=== PATIENT | male | born 1990 | race Caucasian/White ===

== ENCOUNTER 2019-04-28 19:39 | Emergency (ER) | payer SELFPAY ==
[~2019-04-28 19:39] MED LIST: FAMO-63 PO; NAPR-514 PO; PRED1TAB PO; TRAM50TA PO
[2019-04-28 19:40] VITALS: BP 102/73
--- NOTE | 2019-04-28 20:13 | PHYS DOC ---
Past History Past Medical History: No Pertinent History Past Surgical History: No Surgical History Alcohol Use: Occasionally Drug Use: None Adult General Chief Complaint Chief Complaint: SORE THROAT HPI HPI Patient is a 28-year-old male who presents to the emergency department for evaluation of weeks worth of a sore throat, and nasal congestion. He has not had any headache, otalgia, nausea, vomiting, or diarrhea. He had a fever 2 days ago but not today. He has not had any lethargy. He is admitted to without any difficulty or pain. There are no alleviating or exacerbating factors to his symptoms, except that swallowing seems to worsen his pain. He has not had any voice changes. Review of Systems Review of Systems Constitutional: Denies lethargy or chills [] Eyes: Denies change in visual acuity, redness, or eye pain [] HENT: ( nasal congestion & sore throat [] Respiratory: Denies cough or shortness of breath [] GI: Denies nausea, vomiting, bloody stools or diarrhea. Had some epigastric discomfort this morning, gone now. [] : Denies dysuria or hematuria [] Musculoskeletal: Denies back pain or joint pain [] Integument: Denies rash or skin lesions [] Neurologic: Denies headache, focal weakness or sensory changes [] Allergies Allergies Allergies Uncoded Allergies Type Severity Reaction Last Updated Verified narcotics Allergy Unknown 03/14/16 Physical Exam Physical Exam PHYSICAL EXAM: CONSTITUTIONAL: Well developed, well nourished HEAD: normocephalic, atraumatic EENT: PERRL, EOMI. Conjunctivae normal color, sclerae non-icteric; moist mucous membranes. The oropharynx is mildly erythematous. There is no exudate, peritonsillar edema, or uvular deviation. There is mildly tender submandibular lymphadenopathy. NECK: Supple, non-tender; no meningismus. LUNGS: Lungs CTA, breathing even and unlabored. Normal air movement. HEART: Regular rate and rhythm, no murmur CHEST: No deformity; non-tender ABDOMEN: The abdomen is soft, and non-tender, no masses or bruits. EXTREM: Normal ROM; no deformity, no calf tenderness. Normal pulses palpable in all extremities. There is no pedal edema. SKIN: No rash; no diaphoresis NEURO: Alert; normal speech and cognition; CN's grossly intact; strength grossly intact without focal deficit. BACK: No CVA TTP. EKG EKG [] Radiology/Procedures Radiology/Procedures [] Course & Med Decision Making Course & Med Decision Making Rapid strep negative Patient remains stable. I discussed test results, the need for close follow-up, and return precautions. Dragon Disclaimer Dragon Disclaimer This electronic medical record was generated, in whole or in part, using a voice recognition dictation system. Departure Departure: Impression: Primary Impression: Viral pharyngitis Additional Impression: Viral syndrome Disposition: 01 HOME, SELF-CARE Condition: STABLE Patient Instructions: Viral Pharyngitis, Viral Syndrome Problem Qualifiers ELISA BUSH MD Apr 28, 2019 20:13
== END 2019-04-28 20:32 | disposition home or self-care (01) ==
LOC: ER 19:39
DX: B34.9 Viral infection, unspecified (principal); J02.8 Acute pharyngitis due to other specified organisms; Z88.5 Allergy status to narcotic agent
CPT/HCPCS: 87070; 87880; 99283; 99284

== ENCOUNTER 2020-12-07 12:57 | Emergency (ER) | payer SELFPAY ==
[~2020-12-07] VITALS: Ht 182.9 cm; Wt 59.4 kg
--- NOTE | 2020-12-07 13:18 | PHYS DOC ---
Past History Past Medical History: No Pertinent History Past Surgical History: No Surgical History Alcohol Use: Occasionally Drug Use: None General Adult EDM: Chief Complaint: SHORTNESS OF BREATH HPI: HPI: Patient is a 30-year-old male being seen in the ER today for shortness of breath with fever, brown productive cough, diarrhea since Friday. Patient denies any nausea, vomiting, abdominal pain, chest pain. He reports that he has a history of asthma as a child and anxiety. Patient denies any sick exposures. Review of Systems: Review of Systems: 14 body systems of the review of systems have been reviewed. See HPI for pertinent positive and negative responses, otherwise all other systems are negative, nonpertinent or noncontributory Current Medications: Current Meds: Current Medications Medications (Trade) Dose Ordered Sig/Shalonda Start Time Stop Time Status Last Admin Dose Admin Lorazepam (Ativan Inj) 0.5 mg 1X ONCE 12/07/20 13:00 12/07/20 13:08 DC 12/07/20 13:08 0.5 MG Allergies: Allergies: Allergies Uncoded Allergies Type Severity Reaction Last Updated Verified narcotics Allergy Unknown 03/14/16 Physical Exam: PE: Constitutional: Well developed, well nourished, no acute distress, non-toxic appearance. [] HENT: Normocephalic, atraumatic, bilateral external ears normal, oropharynx moist, no oral exudates, nose normal, no oropharyngeal swelling. [] Eyes: PERRL, conjunctiva normal, no discharge. [] Neck: Normal range of motion, no stridor. [] Cardiovascular:Heart rate tachycardic rhythm, no murmur [] Lungs & Thorax: Bilateral breath sounds coarse to auscultation, tachypnea, patient requiring nonrebreather due to hyperventilation and refusal to wear facemask [] Abdomen: Bowel sounds normal, soft, no tenderness, no masses, no pulsatile syed s. [] Skin: Warm, dry, no erythema, no rash. [] Back: No tenderness, normal range of motion Extremities: No tenderness, no cyanosis, no clubbing, ROM intact, no edema. [] Neurologic: Alert and oriented X 3, normal motor function, normal sensory function, no focal deficits noted. [] Psychologic: Patient appears very anxious and is hyperventilating [] Current Patient Data: Labs: Laboratory Tests Test 12/07/20 13:01 White Blood Count 8.0 x10^3/uL Red Blood Count 5.10 x10^6/uL Hemoglobin 16.3 g/dL Bedside Hemoglobin gm/dL Hematocrit 48.2 % Bedside Hematocrit % Mean Corpuscular Volume 94 fL Mean Corpuscular Hemoglobin 32 pg Mean Corpuscular Hemoglobin Concent 34 g/dL Red Cell Distribution Width 12.7 % Platelet Count 300 x10^3/uL Neutrophils (%) (Auto) 52 % Lymphocytes (%) (Auto) 26 % Monocytes (%) (Auto) 11 % Eosinophils (%) (Auto) 10 % Basophils (%) (Auto) 1 % Neutrophils # (Auto) 4.2 x10^3uL Lymphocytes # (Auto) 2.1 x10^3/uL Monocytes # (Auto) 0.9 x10^3/uL Eosinophils # (Auto) 0.8 x10^3/uL Basophils # (Auto) 0.1 x10^3/uL Bedside Sodium 144 mmol/L Sodium Level mmol/L Bedside Potassium 3.9 mmol/L Potassium Level mmol/L Bedside Chloride 105 mmol/L Chloride Level mmol/L Carbon Dioxide Level 24 mmol/L Bedside Total CO2 mmol/L Anion Gap mmol/L Bedside Blood Urea Nitrogen mg/dL Blood Urea Nitrogen 23 mg/dL Creatinine 0.9 mg/dL Bedside Creatinine mg/dL Estimated GFR (Cockcroft-Gault) 100.5 BUN/Creatinine Ratio 26 Glucose Level mg/dL Calcium Level 10.0 mg/dL Bedside Ionized Calcium (Kaveh) mmol/L Total Bilirubin 1.3 mg/dL Aspartate Amino Transf (AST/SGOT) 22 U/L Alanine Aminotransferase (ALT/SGPT) 17 U/L Alkaline Phosphatase 59 U/L Troponin I Quantitative < 0.017 ng/mL Total Protein 8.3 g/dL Albumin 4.9 g/dL Albumin/Globulin Ratio 1.4 Current Medications Medications (Trade) Dose Ordered Sig/Shalonda Route PRN Reason Start Time Stop Time Status Last Admin Dose Admin Lorazepam (Ativan Inj) 0.5 mg 1X ONCE IVP 12/07/20 13:00 12/07/20 13:08 DC 12/07/20 13:08 EKG: EKG: EKG performed at 1350 by ER staff shows sinus tachycardia at a rate of 107 with no STEMI as read by Dr. Fulton. Radiology/Procedures: Radiology/Procedures: []PROCEDURE: PORTABLE CHEST 1V XR CHEST 1V History: Short of air Comparison: None. Technique: AP radiograph of the chest. Findings: The lungs are adequately and symmetrically inflated. There is suggestion of subtle bilateral airspace opacities. No pleural effusion or pneumothorax. Osseous structures and soft tissues are unremarkable. Normal heart size and pulmonary vasculature. Impression: 1. Subtle bilateral airspace opacities may represent diffuse infectious process. Electronically signed by: Deon Vernon MD (12/07/2020 2:22 PM) [facility] DICTATED AND SIGNED BY: DEON VERNON MD DATE: 12/07/201420 CC: OPAL AMAYA APRN; PCP,NO ~MTH0 0 Heart Score: C/O Chest Pain: No Risk Factors: Risk Factors: DM, Current or recent (<one month) smoker, HTN, HLP, family history of CAD, obesity. Risk Scores: Score 0 - 3: 2.5% MACE over next 6 weeks - Discharge Home Score 4 - 6: 20.3% MACE over next 6 weeks - Admit for Clinical Observation Score 7 - 10: 72.7% MACE over next 6 weeks - Early Invasive Strategies Course & Med Decision Making: Course & Med Decision Making Pertinent Labs and Imaging studies reviewed. (See chart for details) Patient is a 30-year-old male being seen in the ER today for shortness of breath, fever, cough, diarrhea. Work-up included work, EKG chest x-ray, Covid testing. Patient was very anxious was given Ativan. Following the administration of Ativan patient's heart rate decreased in setting of his respirations. Vital signs stable patient reports that he still feels like he cannot breathe although he is oxygenating normally. Patient given a DuoNeb tr eatment. Patient lab work was unremarkable, EKG showed sinus tach, Covid test pending, chest x-ray shows pneumonia. Patient given first dose of antibiotic in the ER today. Patient sent home with antibiotic and albuterol inhaler. I discussed with patient all findings and diagnostic testing as well as the need to follow-up with PCP for further evaluation and treatment or return to the ER if any new or worsening symptoms. Strict return precautions were also discussed at length. Patient voiced understanding and agreement with the plan. Patient is hemodynamically stable at the time of disposition. Dragon Disclaimer: Shanelle Disclaimer: This electronic medical record was generated, in whole or in part, using a voice recognition dictation system. Departure Departure: Impression: Primary Impression: Pneumonia Qualified Codes: J18.9 - Pneumonia, unspecified organism Disposition: HOME / SELF CARE / HOMELESS Condition: STABLE Referrals: PCP,NO (PCP) Patient Instructions: Pneumonia, Adult Additional Instructions: You were seen for shortness of breath, fever, cough. Your physical exam was reassuring. Your lab work was unremarkable. Your chest x-ray showed a mild pneumonia. This is treated with an antibiotic. You were given the first dose in the ER today. Please start and finish antibiotic completely. We tested you for COVID-19 but this test does not come back for 1 to 2 days. In the meantime you will need to quarantine yourself at home away from all other individuals, especially those who are elderly or have any other chronic health issues or any one with immunocompromise status. You should return to the ER if you develop worsening cough, shortness of breath, chest pain, or any other new or concerning symptoms. Alternate Tylenol and ibuprofen as needed for your body aches and pain. If your test does come back positive we will need to quarantine yourself for 10 days until symptom free. You should make sure to drink plenty of fluids and get plenty of rest. EMERGENCY DEPARTMENT GENERAL DISCHARGE INSTRUCTIONS Thank you for coming to [facility] (ED) today and trusting us with you care. We trust that you had a positivie experience in our Emergency Department. If you wish to speak to the department management, you may call the director at [phone]. YOUR FOLLOW UP INSTRUCTIONS ARE FOLLOWS: 1. Do you have a private Doctor? If you do not have a private doctor, please a sk for a resource list of physicians or clinics that may be able to assist you with follow up care. 2. The Emergency Physician has interpreted your x-rays. The X-Ray specialist will also review them. If there is a change in the findings, you will be notified in 48 hours when at all possible. 3. A lab test or culture has been done, your results will be reviewed and you will be notified if you need a change in treatment. ADDITIONAL INSTRUCTIONS AND INFORMATION: 1. Your care today has been supervised by a physician who is specially trained in emergency care. Many problems require more than one evaluation for a complete diagnosis and treatment. We recommend that you schedule your follow up appointment as recommended to ensure complete treatment of you illness or injury. If you are unable to obtain follow up care and continue to have a problem, or if your condition worsens, we recommend that you return to the ED. 2. We are not able to safely determine your condition over the phone nor are we able to give sound medical advice over the phone. For these safety reasons, if you call for medical advice we will ask you to come to the ED for further evaluation. 3. If you have any questions regarding these discharge instructions please call the ED at [phone]. SAFETY INFORMATION: In the interest of safety, wellness, and injury prevention; we encourage you to wear your sealbelt, if you smoke; quite smoking, and we encourage family to use a protective helmet for bicycling and other sporting events that present an increased risk for head injury. IF YOUR SYMPTOMS WORSEN OR NEW SYMPTOMS DEVELOP, OR YOU HAVE CONCERNS ABOUT YOUR CONDITION; OR IF YOUR CONDITION WORSENS WHILE YOU ARE WAITING FOR YOUR FOLLOW UP APPOINTMENT; EITHER CONTACT YOUR PRIMARY CARE DOCTOR, THE PHYSICIAN WHOSE NAME AND NUMBER YOU WERE GIVEN, OR RETURN TO THE ED IMMEDIATELY. Scripts Azithromycin (AZITHROMYCIN TABLET) 250 Mg Tablet 1 PKG PO UD for pneumonia for 4 Days, #6 TAB 0 Refills 1 for days 2-5 Prov: OPAL AMAYA APRN 12/07/20 OPAL AMAYA APRN Dec 07, 2020 13:18
[2020-12-07 13:20] LABS: BASO # 0.1 x10^3/uL (0.0-0.2); BASO % 1 % (0-3); EOS # 0.8 x10^3/uL (0.0-0.7); EOS % 10 % (0-3); HEMATOCRIT 48.2 % (39.0-53.0); HEMOGLOBIN 16.3 g/dL (13.0-17.5); LYMPH # 2.1 x10^3/uL (1.0-4.8); LYMPH % 26 % (24-48); MEAN CORPUSCULAR HEMOGLOBIN 32 pg (25-35); MEAN CORPUSCULAR HGB CONC 34 g/dL (31-37); MEAN CORPUSCULAR VOLUME 94 fL (79-100); MONO # 0.9 x10^3/uL (0.0-1.1); MONO % 11 % (0-9); NEUT # 4.2 x10^3uL (1.8-7.7); NEUT % 52 % (31-73); PLATELET COUNT 300 x10^3/uL (140-400); RED CELL DISTRIBUTION WIDTH 12.7 % (11.5-14.5)
[2020-12-07 13:33] LABS: ALBUMIN 4.9 g/dL (3.4-5.0); ALBUMIN/GLOBULIN RATIO 1.4 (1.0-1.7); ALK PHOS 59 U/L (46-116); ALT (SGPT) 17 U/L (16-63); AST (SGOT) 22 U/L (15-37); BLOOD UREA NITROGEN 23 mg/dL (8-26); BUN/CREATININE RATIO 26 (6-20); CARBON DIOXIDE 24 mmol/L (21-32); CREATININE 0.9 mg/dL (0.7-1.3); GFR 100.5; GLUCOSE 90 mg/dL (70-99); POTASSIUM ISTAT 3.9 mmol/L (3.5-5.0); SODIUM ISTAT 144 mmol/L (135-145); TOTAL BILIRUBIN 1.3 mg/dL (0.2-1.0); TOTAL PROTEIN 8.3 g/dL (6.4-8.2)
[2020-12-07] MEDS ORDERED: IPRATRPIUM/ALBUTEROL 0.5/2.5MG 3 ML NEBU. NEB ONE (14:15)
--- NOTE | 2020-12-07 14:24 | RAD ---
XR CHEST 1V History: Short of air Comparison: None. Technique: AP radiograph of the chest. Findings: The lungs are adequately and symmetrically inflated. There is suggestion of subtle bilateral airspace opacities. No pleural effusion or pneumothorax. Osseous structures and soft tissues are unremarkable . Normal heart size and pulmonary vasculature. Impression: 1. Subtle bilateral airspace opacities may represent diffuse infectious process. Electronically signed by: Deon Vernon MD (12/07/2020 2:22 PM) [facility]
--- NOTE | 2020-12-07 14:57 | EKG ---
[address] [address] Test Date: 2020-12-07 Test Time: 13:15:31 Pat Name: EBER GAITAN Department: Room: Gender: M Ditch Rider: NICK : 1990 Requested By: OPAL AMAYA Order Number: [id number] Reading MD: Measurements Intervals [place] Rate: 107 P: 90 LA: 138 QRS: 89 QRSD: 104 T: -26 QT: 342 QTc: 462 Interpretive Statements SINUS TACHYCARDIA R-S TRANSITION ZONE IN V LEADS DISPLACED TO THE LEFT T ABNORMALITY IN ANTERIOR LEADS INFERIOR LEADS ABNORMAL ECG RI6.02 No previous ECG available for comparison
[2020-12-07] MEDS ORDERED: AZITHROMYCIN 250 MG TABLET. PO ONE (15:00)
[2020-12-07] MEDS ORDERED: AZIT250T6 PO (15:41)
[2020-12-07 15:45] VITALS: BP 130/62
== END 2020-12-07 16:04 | disposition home or self-care (01) ==
LOC: ER 12:57
DX: J18.9 Pneumonia, unspecified organism (principal); Z20.822 Contact with and (suspected) exposure to COVID-19; Z88.5 Allergy status to narcotic agent
CPT/HCPCS: 36415; 71045; 80047; 80053; 84484; 85025; 93005; 94640; 96374; 99285; C9803; J2060; U0003

== ENCOUNTER 2021-04-15 12:51 | Emergency (ER) | payer SELFPAY ==
[~2021-04-15] VITALS: Ht 182.9 cm; Wt 59.9 kg
[~2021-04-15 12:51] MED LIST changes: +AZIT250T6 PO
--- NOTE | 2021-04-15 13:23 | PHYS DOC ---
Past History Past Medical History: No Pertinent History Past Surgical History: No Surgical History Alcohol Use: None Drug Use: None General Adult EDM: Chief Complaint: COUGH HPI: HPI: Patient is a 22-year-old male coming in for cough, chest tightness, intermittent fevers for the past 7 days. Patient states he had been doing some lawn work and has a history of allergies and he also states that he was recently visited by family who had similar cold symptoms. Patient has a history of asthma, tobacco use, COVID-19 1 month ago, pneumonia 4 months ago. Patient states that since he had Covid he had completely Review of Systems: Review of Systems: All other systems within normal limits except for as noted in the HPI Allergies: Allergies: Allergies Coded Allergies Type Severity Reaction Last Updated Verified Opioids - Morphine Analogues Adverse Reaction Unknown 04/15/21 Yes Physical Exam: PE: Constitutional: Well developed, well nourished, no acute distress, non-toxic appearance. [] HENT: Normocephalic, atraumatic, bilateral external ears normal, nose normal. [] Eyes: PERRLA, conjunctiva normal, no discharge. [] Neck: No rigidity, supple, no stridor. [] Cardiovascular: Regular rate and rhythm, brisk cap refill [] Lungs & Thorax: Non labored symmetric respirations, no tachypnea or respiratory distress. Expiratory wheezes worse on left [] Abdomen: Soft, nondistended. Skin: Warm, dry, no erythema, no rash. [] Back: Unremarkable Extremities: No deformities, range of motion grossly intact, no lower extremity edema [] Neurologic: Alert and oriented X 3, no focal deficits noted. [] Psychologic: Affect normal, judgement normal, mood normal. [] Current Patient Data: Vital Signs: Vital Signs Date Time Temp Pulse Resp B/P (MAP) Pulse Ox O2 Delivery O2 Flow Rate FiO2 04/15/21 13:00 98.0 65 18 120/81 (94) Room Air EKG: EKG: [] Radiology/Procedures: Radiology/Procedures: [address] [address] IMAGING REPORT Signed PATIENT: EBER GAITAN ACCOUNT: [id number] : 1990 LOCATION: ER AGE: 30 SEX: M EXAM STATUS: REG ER ORD. PHYSICIAN: NEELAM HAMEED MD REASON: pna PROCEDURE: CHEST PA & LATERAL EXAMINATION: Chest radiograph. VIEWS: Frontal and lateral views of the chest COMPARISON: 12/07/2020 INDICATION:30 years, Male, pneumonia. FINDINGS: Normal cardiomediastinal silhouette. No focal consolidation. No pleural effusion or pneumothorax. No acute osseous process. IMPRESSION: No acute cardiopulmonary process. Electronically signed by: Shira Wallace DO (04/15/2021 1:42 PM) [facility] DICTATED AND SIGNED BY: SHIRA WALLACE DO DATE: 04/15/21 1331 CC: NEELAM HAMEED MD; PCP,ROC ~MTH0 0 [] Heart Score: C/O Chest Pain: No Risk Factors: Risk Factors: DM, Current or recent (<one month) smoker, HTN, HLP, family history of CAD, obesity. Risk Scores: Score 0 - 3: 2.5% MACE over next 6 weeks - Discharge Home Score 4 - 6: 20.3% MACE over next 6 weeks - Admit for Clinical Observation Score 7 - 10: 72.7% MACE over next 6 weeks - Early Invasive Strategies Course & Med Decision Making: Course & Med Decision Making Pertinent Labs and Imaging studies reviewed. (See chart for details) [] Dragon Disclaimer: Dragon Disclaimer: This electronic medical record was generated, in whole or in part, using a voice recognition dictation system. Departure Departure: Impression: Primary Impression: Asthma exacerbation Disposition: HOME / SELF CARE / HOMELESS Condition: IMPROVED Referrals: PCP,ROC (PCP) Patient Instructions: Asthma Attacks, Prevention Scripts Prednisone (PREDNISONE) 50 Mg Tablet 1 TAB PO DAILY for steroid for 4 Days, #4 TAB You received this medication in the emergency room today. You will starting your next dose tomorrow. Prov: NEELAM HAMEED MD 04/15/21 Ipratropium/Albuterol Sulfate (DUONEB 0.5-3(2.5) MG/3 ML) 3 Ml Ampul.neb 3 ML NEB QID PRN for WHEEZING for 10 Days, #40 EACH Prov: NEELAM HAMEED MD 04/15/21 NEELAM HAMEED MD Apr 15, 2021 13:23
[2021-04-15] MEDS ORDERED: predniSONE 20 MG TABLET PO ONE (13:30)
[2021-04-15] MEDS ORDERED: IPRATRPIUM/ALBUTEROL 0.5/2.5MG 3 ML NEBU. NEB ONE ×2 (13:30→14:00)
--- NOTE | 2021-04-15 13:45 | RAD ---
EXAMINATION: Chest radiograph. VIEWS: Frontal and lateral views of the chest COMPARISON: 12/07/2020 INDICATION:30 years, Male, pneumonia. FINDINGS: Normal cardiomediastinal silhouette. No focal consolidation. No pleural effusion or pneumothorax. No acute osseous process. IMPRESSION: No acute cardiopulmonary process. Electronically signed by: Landon May DO (04/15/2021 1:42 PM) [facility], [facility]–1983
[2021-04-15] MEDS ORDERED: PRED50TA PO (14:17)
[2021-04-15] MEDS ORDERED: IPRA3AMP29 NEB (14:17)
--- NOTE | 2021-04-15 14:19 | EKG ---
[address] [address] Test Date: 2021-04-15 Test Time: 13:00:52 Pat Name: EBER GAITAN Department: Room: Gender: M Transverse Abdominal Muscle Nurse: NICK : 1990 Requested By: NEELAM HAMEED Order Number: [id number] Reading MD: Atif Castellano Measurements Intervals [place] Rate: 75 P: 71 NV: 152 QRS: 90 QRSD: 104 T: 21 QT: 384 QTc: 431 Interpretive Statements SINUS RHYTHM MIMIMAL INFERIOR T WAVE CHANGES Electronically Signed On 04-16-2021 9:38:08 SUBSTANCE ABUSE PREVENTION COORDINATOR by Atif Castellano
[2021-04-15 14:40] VITALS: BP 104/54
[2021-04-15] MEDS ORDERED: ALBU2.5V8 IH (14:44)
== END 2021-04-15 14:45 | disposition home or self-care (01) ==
LOC: ER 12:51
DX: J45.901 Unspecified asthma with (acute) exacerbation (principal); Z88.5 Allergy status to narcotic agent
CPT/HCPCS: 71046; 93005; 94640; 99284; J7512

== ENCOUNTER 2021-04-18 13:16 | Emergency (ER) | payer SELFPAY ==
[~2021-04-18] VITALS: Ht 182.9 cm; Wt 58.0 kg
[~2021-04-18 13:16] MED LIST changes: +ALBU2.5V8 IH; +IPRA3AMP29 NEB; +PRED50TA PO
[2021-04-18] MEDS ORDERED: IV NORMAL SALINE 1,000ML 1,000 ML IV ONE (14:00)
[2021-04-18] MEDS ORDERED: ALBUTEROL SULFATE 2.5 MG/3 ML NEBU. NEB ONE (14:00)
--- NOTE | 2021-04-18 14:20 | RAD ---
Single view of the chest. 04/18/2021 1:58 PM Indication: Reason: SOB, ongoing / Spl. Instructions: / History: Comparison: Chest radiograph April 07, 2021 Findings: There is no focal consolidation. There is no pleural effusion or pneumothorax. Heart size i s normal. No acute osseous abnormalities are seen. Impression: No evidence of acute cardiopulmonary process. Electronically signed by: Kun Suarez MD (04/18/2021 2:18 PM) [id number]
[2021-04-18] MEDS ORDERED: BUDESONIDE 0.5 MG/2 ML NEBU ONE (14:26)
[2021-04-18 14:28] LABS: BASO # 0.1 x10^3/uL (0.0-0.2); BASO % 1 % (0-3); EOS # 0.1 x10^3/uL (0.0-0.7); EOS % 1 % (0-3); HEMATOCRIT 39.9 % (39.0-53.0); HEMOGLOBIN 13.5 g/dL (13.0-17.5); LYMPH # 2.5 x10^3/uL (1.0-4.8); LYMPH % 21 % (24-48); MEAN CORPUSCULAR HEMOGLOBIN 32 pg (25-35); MEAN CORPUSCULAR HGB CONC 34 g/dL (31-37); MEAN CORPUSCULAR VOLUME 94 fL (79-100); MONO # 0.6 x10^3/uL (0.0-1.1); MONO % 5 % (0-9); NEUT # 8.9 x10^3uL (1.8-7.7); NEUT % 73 % (31-73); PLATELET COUNT 273 x10^3/uL (140-400); RED BLOOD COUNT 4.25 x10^6/uL (4.30-5.70); RED CELL DISTRIBUTION WIDTH 13.7 % (11.5-14.5); WHITE BLOOD COUNT 12.2 x10^3/uL (4.0-11.0)
--- NOTE | 2021-04-18 14:40 | PHYS DOC ---
Past History Past Medical History: No Pertinent History Additional Past Medical Histor: recent history of PNA and covid (NIKITA GRAY) Past Surgical History: Other Additional Past Surgical Histo: wisdom teeth (NIKITA GRAY) Smoking: Cigarettes Alcohol Use: None Drug Use: None (NIKITA GRAY) General Adult EDM: Chief Complaint: SHORTNESS OF BREATH HPI: HPI: Patient is a 30 year old male diagnosed with COVID-19 one month ago who presents with persistent shortness of breath and body aches. Patient reports that prior to his diagnosed with COVID-19, he had bacterial pneumonia. He was seen recentl y, 3 days ago, and was provided with a prescription for p.o. prednisone. Patient reports he has lost about 10-15 pounds in the past week or 2. He reports that he has not been nauseated or had episodes of vomiting, but has not eaten or drank much in the past week. Patient also states that he has felt nasal congestion for about the same amount of time with sore throat particularly worse in the mornings. Patient is concerned for his persistent and ongoing symptoms. (NIKITA GRAY) Review of Systems: Review of Systems: Constitutional: Denies fever or chills Eyes: Denies change in visual acuity or visual field deficits HENT: See HPI Respiratory: See HPI Cardiovascular: Denies chest pain or edema GI: Denies abdominal pain, nausea, vomiting, bloody stools or diarrhea : Denies dysuria or hematuria Musculoskeletal: Denies back pain or joint pain Integument: Denies rash or other skin lesions Neurologic: Denies headache, focal weakness or sensory changes (NIKITA GRAY) Current Medications: Current Meds: Current Medications Medications (Trade) Dose Ordered Sig/Shalonda Start Time Stop Time Status Last Admin Dose Admin Albuterol Sulfate (Ventolin) 5 mg 1X ONCE 04/18/21 14:00 04/18/21 14:01 DC 04/18/21 14:33 5 MG Budesonide (Pulmicort) 0.5 mg STK-MED ONCE 04/18/21 14:26 04/18/21 14:26 DC Sodium Chloride 1,000 ml @ 1,000 mls/hr 1X ONCE 04/18/21 14:00 04/18/21 14:59 04/18/21 13:59 1,000 MLS/HR (NIKITA GRAY) Allergies: Allergies: Allergies Coded Allergies Type Severity Reaction Last Updated Verified butorphanol Adverse Reaction Intermediate colapsed after taking due to dosage 04/18/21 Yes (NIKITA GRAY) Physical Exam: PE: Constitutional: Patient is thin, well-groomed, no acute distress, non-toxic appearance. HENT: Normocephalic, atraumatic, bilateral external ears normal, oropharynx moist, no oral exudates, postnasal drip appreciated, nose without obvious deformity or discharge. Eyes: PERRLA, EOMI, conjunctiva normal, no discharge. Neck: Normal range of motion, no tenderness, supple, no stridor. Cardiovascular: Heart rate regular rhythm, no murmur. Lungs & Thorax: Diffuse inspiratory wheezing with rhonchi on the right side, louder in the base. Abdomen: Bowel sounds normal, soft, no tenderness, no masses, no pulsatile masses. Skin: Warm, dry, no erythema, no rash. Back: No tenderness, no CVA tenderness. Extremities: No tenderness, no cyanosis, no clubbing, ROM intact, no edema. Neurologic: Alert and oriented x4, no focal deficits noted. (NIKITA GRAY) Current Patient Data: Labs: Laboratory Tests Test 04/18/21 13:50 04/18/21 14:07 Influenza Type A (Rapid) Negative (NEGATIVE) Influenza Type B (Rapid) Negative (NEGATIVE) White Blood Count 12.2 x10^3/uL (4.0-11.0) Red Blood Count 4.25 x10^6/uL (4.30-5.70) Hemoglobin 13.5 g/dL (13.0-17.5) Hematocrit 39.9 % (39.0-53.0) Mean Corpuscular Volume 94 fL (79-100) Mean Corpuscular Hemoglobin 32 pg (25-35) Mean Corpuscular Hemoglobin Concent 34 g/dL (31-37) Red Cell Distribution Width 13.7 % (11.5-14.5) Platelet Count 273 x10^3/uL (140-400) Neutrophils (%) (Auto) 73 % (31-73) Lymphocytes (%) (Auto) 21 % (24-48) Monocytes (%) (Auto) 5 % (0-9) Eosinophils (%) (Auto) 1 % (0-3) Basophils (%) (Auto) 1 % (0-3) Neutrophils # (Auto) 8.9 x10^3uL (1.8-7.7) Lymphocytes # (Auto) 2.5 x10^3/uL (1.0-4.8) Monocytes # (Auto) 0.6 x10^3/uL (0.0-1.1) Eosinophils # (Auto) 0.1 x10^3/uL (0.0-0.7) Basophils # (Auto) 0.1 x10^3/uL (0.0-0.2) Sodium Level 142 mmol/L (136-145) Potassium Level 3.0 mmol/L (3.5-5.1) Chloride Level 106 mmol/L (98-107) Carbon Dioxide Level 25 mmol/L (21-32) Anion Gap 11 (6-14) Blood Urea Nitrogen 18 mg/dL (8-26) Creatinine 0.7 mg/dL (0.7-1.3) Estimated GFR (Cockcroft-Gault) 134.3 BUN/Creatinine Ratio 26 (6-20) Glucose Level 83 mg/dL (70-99) Calcium Level 8.9 mg/dL (8.5-10.1) Magnesium Level 2.2 mg/dL (1.8-2.4) Total Bilirubin 1.4 mg/dL (0.2-1.0) Aspartate Amino Transf (AST/SGOT) 12 U/L (15-37) Alanine Aminotransferase (ALT/SGPT) 7 U/L (16-63) Alkaline Phosphatase 43 U/L (46-116) Total Protein 7.7 g/dL (6.4-8.2) Albumin 4.1 g/dL (3.4-5.0) Albumin/Globulin Ratio 1.1 (1.0-1.7) Lipase 34 U/L (73-393) Vital Signs: Vital Signs Date Time Temp Pulse Resp B/P (MAP) Pulse Ox O2 Delivery O2 Flow Rate FiO2 04/18/21 15:45 98 16 110/57 (74) 97 Room Air 04/18/21 15:30 89 16 105/66 (79) 97 Room Air 04/18/21 15:00 97 18 113/54 (73) 99 Room Air 04/18/21 14:34 97 Room Air 04/18/21 14:30 60 18 112/64 (80) 99 Room Air 04/18/21 14:00 73 18 114/74 (87) 99 Room Air 04/18/21 13:29 98.3 75 16 123/81 (95) 99 Room Air (NIKITA GRAY) Radiology/Procedures: Radiology/Procedures: PROCEDURE: PORTABLE CHEST 1V Single view of the chest. 04/18/2021 1:58 PM Indication: Reason: SOB, ongoing / Spl. Instructions: / History: Comparison: Chest radiograph April 07, 2021 Findings: There is no focal consolidation. There is no pleural effusion or pneumothorax. Heart size is normal. No acute osseous abnormalities are seen. Impression: No evidence of acute cardiopulmonary process. Electronically signed by: Kun Suarez MD (04/18/2021 2:18 PM) [id number] (NIKITA GRAY) Heart Score: C/O Chest Pain: No (NIKITA GRAY) Course & Med Decision Making: Course & Med Decision Making Pertinent Labs and Imaging studies reviewed. (See chart for details) Patient presentation consistent with possible COVID long-hauler versus early onset COPD. Patient also reports decreased intake p.o. Work-up today will include chest x-ray, flu swab, lab work. Patient will definitely need follow-up with pulmonology regarding ongoing complaint of shortness of breath. Patient's potassium level is low at 3.0. Patient provided with 40 M EQ p.o. here in the department. He will be provided with potassium rich foods, which he should continue eating to supplement further. Patient will be discharged home with Pulmicort inhaler and contact information for a aircraft skin burnisher for further evaluation and management of his shortness of breath status post COVID-19 infection. Patient understands and is agreeable to discharge plan. (NIKITA GRAY) Course & Med Decision Making I was the Attending physician on the above date of service of this patient. This patient was evaluated, examined, treated, and dispositioned from the emergency department by the mid-level practitioner. I agree to intervention and plan of care as stated Electronically signed, Whit Mckeon DO (WHIT MCKEON DO) Shanelle Disclaimer: Shanelle Disclaimer: This electronic medical record was generated, in whole or in part, using a voice recognition dictation system. (NIKITA GRAY) Departure Departure: Impression: Primary Impression: Post-acute sequelae of COVID-19 (PASC) Additional Impressions: Shortness of breath Hypokalemia Referrals: [facility] (PCP) JET MENA MD Patient Instructions: Potassium Content of Foods, Shortness of Breath, Lmik-tl-Sesk Additional Instructions: Please follow-up with the aircraft skin burnisher, Dr. Frias, whose contact information is listed on this paperwork. He may better evaluate and manage your continued symptoms. Scripts Budesonide (PULMICORT FLEXHALER) 90 Mcg [email or web address] 90 MCG IH DAILY for sob, #1 INH Prov: NIKITA GRAY 04/18/21 NIKITA GRAY Apr 18, 2021 14:40 WHIT MCKEON DO Apr 18, 2021 17:14
[2021-04-18 14:42] LABS: ALBUMIN 4.1 g/dL (3.4-5.0); ALBUMIN/GLOBULIN RATIO 1.1 (1.0-1.7); CALCIUM 8.9 mg/dL (8.5-10.1); CREATININE 0.7 mg/dL (0.7-1.3); GFR 134.3; TOTAL BILIRUBIN 1.4 mg/dL (0.2-1.0); TOTAL PROTEIN 7.7 g/dL (6.4-8.2)
[2021-04-18 14:57] LABS: INFLUENZA A PATIENT NEGATIVE (NEGATIVE); INFLUENZA B PATIENT NEGATIVE (NEGATIVE)
[2021-04-18] MEDS ORDERED: POTASSIUM CHLORIDE 20 MEQ TABLET.ER. PO ONE (15:00)
[2021-04-18] MEDS ORDERED: BUDE90AE IH (15:08)
[2021-04-18 15:45] VITALS: BP 110/57
== END 2021-04-18 15:54 | disposition home or self-care (01) ==
LOC: ER 13:16
DX: U09.9 Post COVID-19 condition, unspecified (principal); E87.6 Hypokalemia; F17.210 Nicotine dependence, cigarettes, uncomplicated; Z88.8 Allergy status to other drugs, medicaments and biological substances
CPT/HCPCS: 36415; 71045; 80053; 83690; 83735; 85025; 87804; 94640; 96360; 99285; J7030; J7613

== ENCOUNTER 2021-07-25 17:19 | Emergency (ER) | payer SELFPAY ==
[~2021-07-25] VITALS: Ht 180.3 cm; Wt 63.0 kg
[~2021-07-25 17:19] MED LIST changes: +BUDE90AE IH
[2021-07-25 17:37] VITALS: BP 102/64
[2021-07-25] MEDS ORDERED: HYDROcodone/APAP 5/325MG 1 TAB TABLET PO ONE (18:30)
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
== END 2021-07-25 20:30 | disposition home or self-care (01) ==
LOC: ER 17:19
DX: M25.571 Pain in right ankle and joints of right foot (principal); F17.210 Nicotine dependence, cigarettes, uncomplicated; Z88.8 Allergy status to other drugs, medicaments and biological substances
CPT/HCPCS: 73610; 99283